=== PATIENT | female | born 1995 | race Caucasian/White ===

== ENCOUNTER 2024-04-30 13:58 | Emergency (ER) | payer OTHER ==
[2024-04-30 14:10] VITALS: BP 123/82; O2SAT 100
--- NOTE | 2024-04-30 14:23 | ED Physician Documentation ---
PD HPI LOWER EXT INJURY - Stated complaint Stated Complaint: RT ANKLE INJURY - Chief complaint Chief Complaint: Trauma Ext - History obtained from History obtained from: Patient, Family - History of Present Illness PD HPI LOW EXT INJURY LOCATION: Right, Ankle Type of injury: Fall (off horse) Timing - onset: Today Pain level max: 5 Pain level now: 3 (better p tylenol) Worsened by: Moving Similar symptoms before: Has not had sx before - Additional information Additional information: Fell off horse. Also mild hip pain, but not nearly as bad as ankle. No poss preg. PD PAST MEDICAL HISTORY - Past Medical History Past Medical History: Yes Psych: Anxiety - Past Surgical History Past Surgical History: No - Allergies Allergies/Adverse Reactions: Allergies Allergy/AdvReac Type Severity Reaction Status Date / Time No Known Drug Allergies Allergy Verified 04/30/24 14:29 - Social History Does the pt smoke?: No Smoking Status: Never smoker Does the pt drink ETOH?: No Does the pt have substance abuse?: No - Immunizations Immunizations are current?: Yes - POLST Patient has POLST: No PD ED PE NORMAL - Vitals Vital signs reviewed: Yes - General General: Alert and oriented X 3, No acute distress - Extremities Extremities: Other (R hip NTTP; FROM. Very ttp and swollen r lat malleolus.) - Neuro Neuro: Alert and oriented X 3 Results - Vitals Vitals: Vital Signs - 24 hr 04/30/24 14:02 Temperature 36.5 C Heart Rate 98 Respiratory 16 Rate Blood Pressure 123/82 H O2 Saturation 100 Oxygen O2 Source Room air PD Medical Decision Making - ED course ED course: 28-year-old woman with isolated right ankle injury with negative radiography consistent with sprain. She was given an Aircast and crutches and counseled on expected healing and follow-up precautions. Departure - Departure Disposition: 01 Home, Self Care Clinical Impression: Right ankle sprain Qualifiers: Encounter type: initial encounter Involved ligament of ankle: anterior talofibular ligament Qualified Code(s): S93.491A - Sprain of other ligament of right ankle, initial encounter Condition: Good Record reviewed to determine appropriate education?: Yes Instructions: ED Sprain Ankle W X Ray Comments: Ice elevate, you can walk and bear weight as tolerated but it would probably hurt too much for at least the first few days to do so. Follow-up with your doctor if not improving in a week for repeat exam. Return for new or worsening symptoms. Tylenol and ibuprofen as needed for pain per package instructions. Forms: PCP List, Activity restrictions Discharge Date/Time: 04/30/24 15:41
--- NOTE | 2024-04-30 16:02 | XRAY Report ---
PROCEDURE: Ankle 3+V RT INDICATIONS: Trauma TECHNIQUE: 3 views of the ankle were acquired. COMPARISON: None FINDINGS: Bones: No fractures or dislocations. Ankle mortise is normally aligned. No suspicious bony lesions . Soft tissues: Lateral soft tissue swelling IMPRESSION: Soft tissue swelling without fracture or foreign body Reviewed by: Gui Garcia MD on 04/30/2024 3:00 PM [facility] Approved by: Gui Garcia MD on 04/30/2024 3:00 PM [facility] Station ID: [id number]
== END 2024-04-30 15:41 | disposition home or self-care (01) ==
LOC: ED 13:58
DX: S93.491A Sprain of other ligament of right ankle, initial encounter (principal); V80.010A Animal-rider injured by fall from or being thrown from horse in noncollision accident, initial encounter
CPT/HCPCS: 99283